=== PATIENT | male | born 1950 | race Caucasian/White ===

== ENCOUNTER → 2020-09-30 08:57 | Outpatient (BNVA) | payer MEDICARE, OTHER, SELFPAY | PROVIDERS: PCP Internal Medicine; Visit Provider Urology | DX: C61 Malignant neoplasm of prostate (principal) | CPT/HCPCS: 96402; 99212; J9217 ==

== ENCOUNTER → 2021-03-22 09:46 | Outpatient (BNVA) | payer MEDICARE, OTHER, SELFPAY | PROVIDERS: PCP Internal Medicine; Visit Provider Urology | DX: C61 Malignant neoplasm of prostate (principal) | CPT/HCPCS: 96402; 99212; J9217 ==

== ENCOUNTER → 2021-10-13 09:17 | Outpatient (BNVA) | payer MEDICARE, OTHER, SELFPAY | PROVIDERS: PCP Internal Medicine; Visit Provider Urology | DX: C61 Malignant neoplasm of prostate (principal) | CPT/HCPCS: Q3014 ==

== ENCOUNTER → 2022-04-19 13:51 | Outpatient (BNVA) | payer MEDICARE, OTHER, SELFPAY | PROVIDERS: PCP Internal Medicine; Visit Provider Urology | DX: R39.15 Urgency of urination (principal); C61 Malignant neoplasm of prostate | CPT/HCPCS: Q3014 ==

== ENCOUNTER → 2022-10-24 09:15 | Outpatient (BNVA) | payer MEDICARE, OTHER, SELFPAY | PROVIDERS: PCP Internal Medicine; Visit Provider Urology | DX: C61 Malignant neoplasm of prostate (principal); R39.15 Urgency of urination | CPT/HCPCS: Q3014 ==

== ENCOUNTER 2023-04-19 09:55 | Outpatient (AMB) | payer MEDICARE, OTHER, SELFPAY ==
--- NOTE | 2023-04-19 09:56 | MHC.OFFVIS ---
Intake Intake Visit Reasons: 6M PSA(set) Intake Note: Patient is present for Telephone PSA Follow Up Urology Med: Oxybutynin Antibiotic Allergy: None Blood Thinner: Aspirin Allergies poison lauren extract [POISON LAUREN] Allergy (Unknown, Verified 04/19/23 09:57) RASH SWELLING Medication List - Last Reconciled 04/19/23 by Jayson Parry MD amoxicillin-pot clavulanate 875-125 mg 1 tab PO BID aspirin (Adult Aspirin Regimen) 81 mg PO DAILY atorvastatin mg PO fluticasone propionate 50 mcg/actuation intranasal hydrochlorothiazide 25 mg PO DAILY lisinopril 20 mg PO DAILY lovastatin 20 mg PO DAILY oxybutynin chloride ER 5 mg PO DAILY 90 days HPI HPI Comments History of Present Illness Details Abran is a very pleasant male. He is a patient of Dr. North. He is seen for the following urologic condition. - prostate cancer recurrence - urinary urgency Telemedicine evaluation 15 minute consultation Doximity gabino Video attempted PSA stability maintained Continues to use oxybutynin for stability of bladder. Planned upcoming [facility] trip Prostate cancer. Initial therapy prostatectomy. 1998. External beam radiation 2018 Initial diagnosis 1998 - Dr. Ramon Initial therapy radical prostatectomy PSA was stable and approximately 2018 started to rise. - Maximum elevation 1.8 Secondary therapy external beam radiation with 2 years of GnRH 2018 Last GnRH 03/14 Associated symptoms during therapy urinary urgency frequency on oxybutynin PSA 03/14 < 0.1, 09/13 <0.1 T 224, 04/14 <0.1, 10/16 <0.1, 04/15 <0.1 Therapeutic plan surveillance [facility] Medical History Prostate cancer Review of Systems Const All systems reviewed & are unremarkable except as noted in HPI and below Reports no additional complaints Resp Reports no additional complaints GI Reports no additional complaints Reports as per HPI Musc Reports no additional complaints Physical Exam Telemedicine evaluation Appropriate responses Regular breathing rate and rhythm HEENT Head: Yes normal to inspection Ears: hearing grossly normal bilaterally Eyes General: appearance normal, both eyes and all related structures Neck Neck: Yes normal visual inspection Chest Chest palpation & inspection: normal inspection of the chest Resp Effort & Inspection: normal respiratory effort and able to speak in complete sentences Assessment & Plan Assessment & Plan (1) Prostate cancer: Comment: Initial diagnosis 1998 with prostatectomy, radiation and hormones 2019 Code(s): C61 - Malignant neoplasm of prostate (2) Urinary urgency: Code(s): R39.15 - Urgency of urination Plan Six month follow-up PSA Orders: Orders Prostate Specific Antigen 6 Months C61 - Malignant neoplasm of prostate Medications: Refilled oxybutynin chloride ER 5 mg PO DAILY 90 tabs 1RF 90 days Patient Instructions: Imaging studies, laboratory and physical exam results were discussed and reviewed in detail. No major barriers to patient understanding were identified. An opportunity to ask questions regarding the treatment plan was provided. All questions were answered. The patient expressed understanding and agreement with the above treatment plan. The patient is aware they should contact our office by phone for worsening of their current condition or the appearance of new urologic symptoms. Compliance is encouraged with any medications and followup testing that is ordered. It is a privilege to participate in the urologic care of your patient. If you have any questions or concerns regarding treatment for the above conditions, or other urologic issues, please do not hesitate to contact me. The office telephone contact is [phone]. This note is constructed using voice recognition software. While every effort has been made to ensure accuracy senior accountant analyst errors may have been included. Yours sincerely, Dr Jayson Parry MD, [facility] - Urology Providers of Expert, Compassionate Care for the Genitourinary System Telehealth Telehealth Location of provider rendering services: practice address Location of patient: address on file Patient Identification confirmed using: Name, : Yes Telehealth method: video Patient verbally consented to treatment: Yes Patient verbally consented to billing insurance company: Yes Patient informed of any privacy concerns related to visit: Yes Coding Level of Care Code Tele Est Pt Level 3 (10581) Diagnoses Prostate cancer C61 Urinary urgency R39.15
== END 2023-04-19 10:35 | disposition home or self-care (01) ==
LOC: HO.HUSH 09:55
PROVIDERS: PCP Internal Medicine; Visit Provider Urology
DX: C61 Malignant neoplasm of prostate (principal); R39.15 Urgency of urination
CPT/HCPCS: 99442

== ENCOUNTER → 2023-04-19 09:55 | Outpatient (BNVA) | payer MEDICARE, OTHER, SELFPAY | PROVIDERS: PCP Internal Medicine; Visit Provider Urology ==

== ENCOUNTER 2023-10-04 10:57 | Outpatient (AMB) | payer MEDICARE, OTHER, SELFPAY ==
--- NOTE | 2023-10-04 10:58 | A.OFFVIS_ITS ---
Intake Intake Visit Reasons: 6m/PSA(set less than 0.1) Intake Note: Patient is Present for Telephone Follow Up PSA Urology Med: Oxybutynin Antibiotic Allergy: None Blood Thinner: Aspirin Current PSA: Less than 0.01 Allergies poison lauren extract [POISON LAUREN] Allergy (Unknown, Verified 10/04/23 11:03) RASH SWELLING Medication List - Last Reconciled 10/04/23 by Jayson Parry MD amoxicillin-pot clavulanate 875-125 mg 1 tab PO BID aspirin (Adult Aspirin Regimen) 81 mg PO DAILY atorvastatin mg PO fesoterodine ER 4 mg PO DAILY 30 days fluticasone propionate 50 mcg/actuation intranasal hydrochlorothiazide 25 mg PO DAILY lisinopril 20 mg PO DAILY lovastatin 20 mg PO DAILY HPI HPI Comments History of Present Illness Details Abran is a very pleasant male. He is a patient of Dr. North. He is seen for the following urologic condition. - prostate cancer recurrence - urinary urgency Telemedicine evaluation 15 minute consultation Doximity gabino Video attempted PSA stability maintained Continues to use oxybutynin for stability of bladder. Will switch to Toviaz since has better tolerance. Prostate cancer. Initial therapy prostatectomy. 1998. External beam radiation 2018 Initial diagnosis 1998 - Dr. Ramon Initial therapy radical prostatectomy PSA was stable and approximately 2018 started to rise. - Maximum elevation 1.8 Secondary therapy external beam radiation with 2 years of GnRH 2018 Last GnRH 03/14 Associated symptoms during therapy urinary-urgency frequency on oxybutynin PSA 03/14 < 0.1, 09/13 <0.1 T 224, 04/14 <0.1, 10/16 <0.1, 04/15 <0.1, 09/15 <0.1 Therapeutic plan surveillance [facility] Medical History Prostate cancer Review of Systems Const All systems reviewed & are unremarkable except as noted in HPI and below Reports no additional complaints Resp Reports no additional complaints GI Reports no additional complaints Reports as per HPI Musc Reports no additional complaints Physical Exam Telemedicine evaluation Appropriate responses Regular breathing rate and rhythm HEENT Head: Yes normal to inspection Ears: hearing grossly normal bilaterally Eyes General: appearance normal, both eyes and all related structures Neck Neck: Yes normal visual inspection Chest Chest palpation & inspection: normal inspection of the chest Resp Effort & Inspection: normal respiratory effort and able to speak in complete sentences Assessment & Plan Assessment & Plan (1) Prostate cancer: Comment: Initial diagnosis 1998 with prostatectomy, radiation and hormones 2018 Code(s): C61 - Malignant neoplasm of prostate (2) Urinary urgency: Code(s): R39.15 - Urgency of urination Plan 2m f/u tele Medications: Changed From oxybutynin chloride ER 5 mg PO DAILY 90 days 90 tabs 1RF To fesoterodine ER 4 mg PO DAILY 30 days 30 tabs 1RF Patient Instructions: Imaging studies, laboratory and physical exam results were discussed and reviewed in detail. No major barriers to patient understanding were identified. An opportunity to ask questions regarding the treatment plan was provided. All questions were answered. The patient expressed understanding and agreement with the above treatment plan. The patient is aware they should contact our office by phone for worsening of their current condition or the appearance of new urologic symptoms. Compliance is encouraged with any medications and followup testing that is ordered. It is a privilege to participate in the urologic care of your patient. If you have any questions or concerns regarding treatment for the above conditions, or other urologic issues, please do not hesitate to contact me. The office telephone contact is [phone]. This note is constructed using voice recognition software. While every effort has been made to ensure accuracy asset protection representative errors may have been included. Yours sincerely, Dr Jayson Parry MD, [facility] - Urology Providers of Expert, Compassionate Care for the Genitourinary System Telehealth Telehealth Location of provider rendering services: practice address Location of patient: address on file Patient Identification confirmed using: Name, : Yes Telehealth method: video Patient verbally consented to treatment: Yes Patient verbally consented to billing insurance company: Yes Patient informed of any privacy concerns related to visit: Yes Coding Level of Care Code Tele Est Pt Level 4 (57835) Diagnoses Prostate cancer C61 Urinary urgency R39.15
== END 2023-10-04 11:13 | disposition home or self-care (01) ==
LOC: HO.HUSH 10:57
PROVIDERS: PCP Internal Medicine; Visit Provider Urology
DX: C61 Malignant neoplasm of prostate (principal); R39.15 Urgency of urination
CPT/HCPCS: 99213

== ENCOUNTER → 2023-10-04 10:57 | Outpatient (BNVA) | payer MEDICARE, OTHER, SELFPAY | PROVIDERS: PCP Internal Medicine; Visit Provider Urology ==

== ENCOUNTER 2024-01-03 08:12 | Outpatient (AMB) | payer MEDICARE, OTHER, SELFPAY ==
--- NOTE | 2024-01-03 08:14 | A.OFFVIS_ITS ---
Intake Intake Visit Reasons: 2M Med Review(Fesoterodine) confirmed Intake Note: Patient presents today for a telehealth follow up on: Fesoterodine review Meds- Oxybutynin Allergies to Antibiotic- No Known Allergies Blood Thinner- Aspirin Sulphate Tester Required: No Allergies poison lauren extract [POISON LAUREN] Allergy (Unknown, Verified 01/03/24 08:16) RASH SWELLING HPI HPI Comments History of Present Illness Details Abran is a very pleasant male. He is a patient of Dr. North. He is seen for the following urologic condition. - prostate cancer recurrence - urinary urgency Telemedicine evaluation 15 minute consultation fitkit gabino Video Follow-up for trial of Toviaz. Had responded previously to oxybutynin. PSA stability maintained Prefers oxybutynin for stability of bladder. Radiation cystitis - urinary urgency frequency Prior response to oxybutynin Failed Toviaz - side effects with bowels - increased frequency Has been back on oxybuytinin - less bowel effects Prostate cancer. Initial therapy prostatectomy. 1998. External beam radiation 2018 Initial diagnosis 1998 - Dr. Ramon Initial therapy radical prostatectomy PSA was stable and approximately 2018 started to rise. - Maximum elevation 1.8 Secondary therapy external beam radiation with 2 years of GnRH 2017 Last GnRH 03/14 Associated symptoms during therapy urinary-urgency frequency on oxybutynin PSA 03/14 < 0.1, 09/13 <0.1 T 224, 04/14 <0.1, 10/16 <0.1, 04/15 <0.1, 09/15 <0.1 Therapeutic plan surveillance [facility] Medical History Prostate cancer Review of Systems Const All systems reviewed & are unremarkable except as noted in HPI and below Reports no additional complaints Resp Reports no additional complaints GI Reports no additional complaints Reports as per HPI Musc Reports no additional complaints Physical Exam Telemedicine evaluation Appropriate responses Regular breathing rate and rhythm HEENT Head: Yes normal to inspection Ears: hearing grossly normal bilaterally Eyes General: appearance normal, both eyes and all related structures Neck Neck: Yes normal visual inspection Chest Chest palpation & inspection: normal inspection of the chest Resp Effort & Inspection: normal respiratory effort and able to speak in complete sentences Assessment & Plan Assessment & Plan (1) Prostate cancer: Comment: Initial diagnosis 1998 with prostatectomy, radiation and hormones 2018 Code(s): C61 - Malignant neoplasm of prostate (2) Urinary urgency: Code(s): R39.15 - Urgency of urination Plan Six-month follow-up PSA Orders: Orders Prostate Specific Antigen 6 Months C61 - Malignant neoplasm of prostate Patient Instructions: Imaging studies, laboratory and physical exam results were discussed and reviewed in detail. No major barriers to patient understanding were identified. An opportunity to ask questions regarding the treatment plan was provided. All questions were answered. The patient expressed understanding and agreement with the above treatment plan. The patient is aware they should contact our office by phone for worsening of their current condition or the appearance of new urologic symptoms. Compliance is encouraged with any medications and followup testing that is ordered. It is a privilege to participate in the urologic care of your patient. If you have any questions or concerns regarding treatment for the above conditions, or other urologic issues, please do not hesitate to contact me. The office telephone contact is [phone]. This note is constructed using voice recognition software. While every effort has been made to ensure accuracy crutch maker errors may have been included. Yours sincerely, Dr Jayson Parry MD, [facility] - Urology Providers of Expert, Compassionate Care for the Genitourinary System Telehealth Telehealth Location of provider rendering services: practice address Location of patient: address on file Patient Identification confirmed using: Name, : Yes Telehealth method: video Patient verbally consented to treatment: Yes Patient verbally consented to billing insurance company: Yes Patient informed of any privacy concerns related to visit: Yes Minutes spent on Phone/Video with Pt.: 15 Coding Level of Care Code Tele Est Pt Level 3 (81988) Diagnoses Prostate cancer C61 Urinary urgency R39.15
== END 2024-01-03 08:47 | disposition home or self-care (01) ==
LOC: HO.HUSH 08:12
PROVIDERS: PCP Internal Medicine; Visit Provider Urology
DX: C61 Malignant neoplasm of prostate (principal); R39.15 Urgency of urination
CPT/HCPCS: 99213

== ENCOUNTER → 2024-01-03 08:12 | Outpatient (BNVA) | payer MEDICARE, OTHER, SELFPAY | PROVIDERS: PCP Internal Medicine; Visit Provider Urology ==

== ENCOUNTER 2024-07-04 08:36 | Outpatient (AMB) | payer MEDICARE, OTHER, SELFPAY ==
--- NOTE | 2024-07-04 08:44 | A.OFFVIS_ITS ---
Intake Visit Reasons: 6M PSA(SET)[place] Intake Note: Patient is Present for Follow Up PSA Urology Medication: Oxybutynin Antibiotic Allergies:None Blood Thinners: Aspirin Recent PSA: 06/27/2024 PSA: <0.01 Polisher Hand Required: No Accompanied by: Self / Same As Patient Allergies poison lauren extract [POISON LAUREN] Allergy (Unknown, Verified 07/04/24 08:49) RASH SWELLING HPI Comments Details: Abran is a very pleasant male. He is a patient of Dr. North. He is seen for the following urologic condition. - prostate cancer recurrence - urinary urgency Has remained on oxybutynin for urgency frequency PSA stability maintained Prefers oxybutynin for stability of bladder. Six-month follow-up tele Radiation cystitis - urinary urgency frequency Prior response to oxybutynin Failed Toviaz - side effects with bowels - increased frequency Has been back on oxybuytinin - less bowel effects Prostate cancer. Initial therapy prostatectomy. 1998. External beam radiation 2017 Initial diagnosis 1998 - Dr. Ramon Initial therapy radical prostatectomy PSA was stable and approximately 2017 started to rise. - Maximum elevation 1.8 Secondary therapy external beam radiation with 2 years of GnRH 2018 Last GnRH 03/14 Associated symptoms during therapy urinary-urgency frequency on oxybutynin PSA 03/14 < 0.1, 09/13 <0.1 T 224, 04/14 <0.1, 10/16 <0.1, 04/15 <0.1, 09/15 <0.1, 06/27 <0.1 Therapeutic plan surveillance [facility] Medical History Prostate cancer Review of Systems Const Denies chills and Denies fever(s) Card Reports no additional complaints and Denies syncope Resp Denies cough GI Denies abdominal pain and Denies heartburn Reports as per HPI and Denies change in libido Neuro Denies syncope Psych Denies change in libido Endo Denies change in libido Physical Exam Const General: cooperative, healthy appearing, comfortable and no acute distress Orientation/consciousness: patient oriented x3 HEENT Face and sinus: Yes normal facial exam Mouth: moist mucous membranes Neck Neck: Yes normal visual inspection, Yes full ROM and Yes trachea midline Chest Chest palpation & inspection: normal inspection of the chest Resp Effort & Inspection: normal respiratory effort, able to speak in complete sentences and no respiratory distress GI Inspection: Yes normal to inspection Back/Spine/Pelvis Cervical Spine: normal cervical lordosis Thoracic/Lumbar Spine: thoracic and lumbar spine normal to inspection Skin General skin exam: no rashes or lesions noted Neuro General: patient oriented x3, gait normal, tone normal and moves all extremities Extrem General: Yes normal to inspection and Yes capillary refill normal Assessment & Plan Assessment & Plan (1) Urinary urgency: Code(s): R39.15 - Urgency of urination Category: Medical (2) Prostate cancer: Comment: Initial diagnosis 1998 with prostatectomy, radiation and hormones 2018 Code(s): C61 - Malignant neoplasm of prostate Category: Medical Plan Six-month follow-up Orders: Orders Prostate Specific Antigen 6 Months C61 - Malignant neoplasm of prostate Patient Instructions: Imaging studies, laboratory and physical exam results were discussed and reviewed in detail. No major barriers to patient understanding were identified. An opportunity to ask questions regarding the treatment plan was provided. All questions were answered. The patient expressed understanding and agreement with the above treatment plan. The patient is aware they should contact our office by phone for worsening of their current condition or the appearance of new urologic symptoms. Compliance is encouraged with any medications and followup testing that is ordered. It is a privilege to participate in the urologic care of your patient. If you have any questions or concerns regarding treatment for the above conditions, or other urologic issues, please do not hesitate to contact me. The office telephone contact is [phone]. This note is constructed using voice recognition software. While every effort has been made to ensure accuracy certified prosthetist errors may have been included. Yours sincerely, Dr Jayson Parry MD, [facility] - Urology Providers of Expert, Compassionate Care for the Genitourinary System Coding Level of Care Code Est Pt Level 3 (50771) Diagnoses Urinary urgency R39.15 Prostate cancer C61
== END 2024-07-04 09:01 | disposition home or self-care (01) ==
PROVIDERS: PCP Internal Medicine; Visit Provider Urology
DX: R39.15 Urgency of urination (principal); C61 Malignant neoplasm of prostate
CPT/HCPCS: 99213

== ENCOUNTER → 2024-07-04 08:36 | Outpatient (BNVA) | payer MEDICARE, OTHER, SELFPAY | PROVIDERS: PCP Internal Medicine; Visit Provider Urology | DX: R39.15 Urgency of urination (principal); C61 Malignant neoplasm of prostate | CPT/HCPCS: 99212 ==

== ENCOUNTER 2025-01-06 08:26 | Outpatient (AMB) | payer MEDICARE, OTHER, SELFPAY ==
--- NOTE | 2025-01-06 08:26 | A.OFFVIS_ITS ---
Intake Visit Reasons: Six-month follow-up PSA tele Intake Note: Patient is present for 6M/PSA Urology Medication:OXYBUTYNIN Antibiotic Allergy:NONE Blood Thinner:ASPIRIN Straightedge Worker Required: No Allergies poison lauren extract [POISON LAUREN] Allergy (Unknown, Verified 01/06/25 08:27) RASH SWELLING HPI Comments Details: Abran is a very pleasant male. He is a patient of Dr. North. He is seen for the following urologic condition. - prostate cancer recurrence - urinary urgency Lab work at [facility] Telemedicine Evaluation 15 min Consultation [employer] Lisa Video Has remained on oxybutynin for urgency frequency Prefers oxybutynin for stability of bladder - discussed trial of other anticholinergics previously failed Toviaz Six-month follow-up office Radiation cystitis - urinary urgency frequency Prior response to oxybutynin Failed Toviaz - side effects with bowels - increased frequency Has been back on oxybuytinin - less bowel effects Prostate cancer. Initial therapy prostatectomy. 1998. External beam radiation 2017 Initial diagnosis 1998 - Dr. Ramon Initial therapy radical prostatectomy PSA was stable and approximately 2018 started to rise. - Maximum elevation 1.8 Secondary therapy external beam radiation with 2 years of GnRH 2018 Last GnRH 03/14 Associated symptoms during therapy urinary-urgency frequency on oxybutynin PSA 03/14 < 0.1, 09/13 <0.1 T 224, 04/14 <0.1, 10/16 <0.1, 04/15 <0.1, 09/15 <0.1, 07/17 <0.1 Therapeutic plan surveillance [facility] Medical History Prostate cancer Review of Systems Const All systems reviewed & are unremarkable except as noted in HPI and below Reports no additional complaints Resp Reports no additional complaints GI Reports no additional complaints Reports as per HPI Musc Reports no additional complaints Physical Exam Telemedicine evaluation Appropriate responses Regular breathing rate and rhythm HEENT Head: Yes normal to inspection Ears: hearing grossly normal bilaterally Eyes General: appearance normal, both eyes and all related structures Neck Neck: Yes normal visual inspection Chest Chest palpation & inspection: normal inspection of the chest Resp Effort & Inspection: normal respiratory effort and able to speak in complete sentences Telehealth Telehealth Location of provider rendering services: practice address Location of patient: address on file Patient Identification confirmed using: Name, : Yes Telehealth method: voice only Patient verbally consented to treatment: Yes Patient verbally consented to billing insurance company: Yes Patient informed of any privacy concerns related to visit: Yes Assessment & Plan Assessment & Plan (1) Prostate cancer: Comment: Initial diagnosis 1998 with prostatectomy, radiation and hormones 2018 Code(s): C61 - Malignant neoplasm of prostate Category: Medical (2) Urinary urgency: Code(s): R39.15 - Urgency of urination Category: Medical Plan Six-month follow-up PSA [place] office Orders: Orders Prostate Specific Antigen 6 Months C61 - Malignant neoplasm of prostate Medications: Refilled oxybutynin chloride ER 5 mg PO DAILY 90 days 90 tabs 1RF R39.15 - Urgency of urination Patient Instructions: This note is constructed using voice recognition software. While every effort has been made to ensure accuracy projection printer errors may have been included. Imaging studies, laboratory and physical exam results were discussed and reviewed in detail. No major barriers to patient understanding were identified. An opportunity to ask questions regarding the treatment plan was provided. All questions were answered. The patient expressed understanding and agreement with the above treatment plan. The patient is aware they should contact our office by phone for worsening of their current condition or the appearance of new urologic symptoms. Compliance is encouraged with any medications and followup testing that is ordered. It is a privilege to participate in the urologic care of your patient. If you have any questions or concerns regarding treatment for the above conditions, or other urologic issues, please do not hesitate to contact me. The office telephone contact is [phone]. Sincerely, Dr Jayson Parry MD, [facility] - Urology Compassionate Specialist Care for the Genitourinary System Coding Level of Care Code Tele Est Pt Level 3 (68353) Complex EM visit Add On G2211 Diagnoses Prostate cancer C61 Urinary urgency R39.15
== END 2025-01-06 09:00 | disposition home or self-care (01) ==
LOC: HO.HUSH 08:26
PROVIDERS: PCP Internal Medicine; Visit Provider Urology
DX: C61 Malignant neoplasm of prostate (principal); R39.15 Urgency of urination
CPT/HCPCS: 99213; G2211

== ENCOUNTER → 2025-01-06 08:26 | Outpatient (BNVA) | payer MEDICARE, OTHER, SELFPAY | PROVIDERS: PCP Internal Medicine; Visit Provider Urology ==

== ENCOUNTER 2025-07-09 08:34 | Outpatient (AMB) | payer MEDICARE, OTHER, SELFPAY ==
--- NOTE | 2025-07-09 08:35 | A.OFFVIS_ITS ---
Intake Visit Reasons: 6m/PSA Intake Note: patient presents today for: 6mo follow up urology medications: oxybutynin blood thinners: aspirin labs done 06/26/25: PSA <0.01 Senior Application Security Consultant Required: No Accompanied by: Self / Same As Patient Allergies poison lauren extract (POISON LAUREN) Allergy (Unknown, Verified 07/09/25 08:37) RASH SWELLING HPI Comments Details: Abran is a very pleasant male. He is a patient of Dr. North. He is seen for the following urologic condition. - prostate cancer recurrence - urinary urgency Lab work at [facility] PSA remains well controlled Has remained on oxybutynin for urgency frequency - switch to Toviaz Prefers oxybutynin for stability of bladder - discussed trial of other anticholinergics previously failed Toviaz 12 month follow-up Radiation cystitis - urinary urgency frequency Prior response to oxybutynin Failed Toviaz - side effects with bowels - increased frequency Has been back on oxybuytinin - less bowel effects Prostate cancer. Initial therapy prostatectomy. 1998. External beam radiation 2017 Initial diagnosis 1998 - Dr. Ramon Initial therapy radical prostatectomy PSA was stable and approximately 2018 started to rise. - Maximum elevation 1.8 Secondary therapy external beam radiation with 2 years of GnRH 2018 Last GnRH 03/14 Associated symptoms during therapy urinary-urgency frequency on oxybutynin PSA 03/14 < 0.1, 09/13 <0.1 T 224, 04/14 <0.1, 10/16 <0.1, 04/15 <0.1, 09/15 <0.1, 07/17 <0.1, 07/18 <0.1 Therapeutic plan surveillance [facility] Medical History Prostate cancer Review of Systems Const Denies chills and Denies fever(s) Card Reports no additional complaints and Denies syncope Resp Denies cough GI Denies abdominal pain and Denies heartburn Reports as per HPI and Denies change in libido Neuro Denies syncope Psych Denies change in libido Endo Denies change in libido Physical Exam Const General: cooperative, healthy appearing, comfortable and no acute distress Orientation/consciousness: patient oriented x3 HEENT Face and sinus: Yes normal facial exam Mouth: moist mucous membranes Neck Neck: Yes normal visual inspection, Yes full ROM and Yes trachea midline Chest Chest palpation & inspection: normal inspection of the chest Resp Effort & Inspection: normal respiratory effort, able to speak in complete sentences and no respiratory distress GI Inspection: Yes normal to inspection Back/Spine/Pelvis Cervical Spine: normal cervical lordosis Thoracic/Lumbar Spine: thoracic and lumbar spine normal to inspection Skin General skin exam: no rashes or lesions noted Neuro General: patient oriented x3, gait normal, tone normal and moves all extremities Extrem General: Yes normal to inspection and Yes capillary refill normal Assessment & Plan Assessment & Plan (1) Prostate cancer: Comment: Initial diagnosis 1998 with prostatectomy, radiation and hormones 2018 Code(s): C61 - Malignant neoplasm of prostate Category: Medical (2) Urinary urgency: Code(s): R39.15 - Urgency of urination Category: Medical Plan Twelve month follow-up PSA Orders: Orders Prostate Specific Antigen 12 Months C61 - Malignant neoplasm of prostate Medications: New fesoterodine ER 4 mg PO DAILY 30 tabs 1RF 30 days R39.15 - Urgency of urination Discontinued oxybutynin chloride ER Discontinued Reason: Patient Completed Course 5 mg PO DAILY 90 days 90 tabs 1RF R39.15 - Urgency of urination Patient Instructions: This note is constructed using voice recognition software. While every effort has been made to ensure accuracy wide area network systems administrator errors may have been included. Imaging studies, laboratory and physical exam results were discussed and reviewed in detail. No major barriers to patient understanding were identified. An opportunity to ask questions regarding the treatment plan was provided. All questions were answered. The patient expressed understanding and agreement with the above treatment plan. The patient is aware they should contact our office by phone for worsening of their current condition or the appearance of new urologic symptoms. Compliance is encouraged with any medications and followup testing that is ordered. It is a privilege to participate in the urologic care of your patient. If you have any questions or concerns regarding treatment for the above conditions, or other urologic issues, please do not hesitate to contact me. The office telephone contact is [phone]. Sincerely, Dr Jayson Parry MD, [facility] - Urology Compassionate Specialist Care for the Genitourinary System Coding Level of Care Code Est Pt Level 3 (99218) Complex EM visit Add On G2211 Diagnoses Prostate cancer C61 Urinary urgency R39.15
--- OUTSIDE RECORDS SUMMARY | 2025-07-09 09:03 | XMS_ITS | Encounter Summary ---
Author Organization [facility] Address [address] [place] [address] Phone Care Team Providers Care Talent Agent Name Role Phone María North MD Unavailable [phone] María North MD Primary Care Provider [phone] Encounter Details Date Type Department Care Team (Late st Contact Info) Description 01/16/2024 Transcribe Orders [facility] Laboratory [address] [place], [place] [id number] María North MD [address] [place], [place] [id number] [email or web address] Hypertension, unspecified type (Primary Dx); Hyperlipidemia, unspecified hyperlipidemia type; Elevated MCV Social History Tobacco Use Types Packs/Day Years Used Date Smoking Tobacco: Former Cigarettes Q uit: 12/29/1973 Smokeless Tobacco: Never Alcohol Use Standard Drinks/Week Comments Yes 28 (1 standard drink = 0.6 oz pu re alcohol) Education Answer Date Recorded Are you interested in more education? Not on adia e 01/19/2023 Are you concerned about learning? Not on file 01/19/2023 No 01/19/2023 No 01/19/2023 Digital Access Answer Date Recorded No 02/13/2023 No 02/13/2023 Reliable internet access at home? Not on file 02/13/2023 Device with a working camera? Not on file Intimate Partner Violence Answer Date R ecorded Are you denied basic needs s uch as food, clothing, or medical care? No 02/22/2023 In the past 12 months have y ou been in a relationship with a person who hurts, threatens, or tries to control you? No 02/22/2023 Are you denied basic needs s uch as food, clothing, or medical care? No 02/22/2023 In the past 12 months have y ou been in a relationship with a person who hurts, threatens, or tries to control you? No 02/22/2023 Sex and Gender Information Value Date Recorded Sex Assigned at Not on file Legal Sex Male 10:04 PM EDT Gender Identity Not on file Sexual Orientation Not on file documented as of this encounter Plan of Treatment Not on file documented as of this encounter Results * (ABNORMAL) CBC (01/16/2024 8:01 AM EDT) WBC 6.94 4.00 - 11.00 K/uL [facility] RBC 4.12 3.90 - 5.69 M/uL [facility] HGB 13.7 12.4 - 17.3 g/dL [facility] HCT 41.1 37.0 - 51.0 % [facility] PLT 344 140 - 430 K/uL [facility] MCV 99.8(H) 78.0 - 97.0 fL [facility] MCH 33.3(H) 25.0 - 33.0 pg [facility] MCHC 33.3 32.0 - 36.0 g/dL [facility] RDW 12.4 11.0 - 15.0 % [facility] MPV 9.7 8.4 - 12.8 fl [facility] Blood 01/16/2024 8:01 AM EDT 01/16/2024 8:09 AM EDT us María North MD LAB BLOOD ORDERABLES Final Result [facility] [address] [place] [address] * Lipid panel (01/16/2024 8:01 AM EDT) HDL 52 mg/dL [facility] Comment: Interpretation <40 mg/dL: Low HDL cholesterol (major risk factor for CHD) Greater than or equal to 60 mg/dL: High HDL cholesterol ( negative risk factor for CHD) HDL - cholesterol is affected by a number of factors, e.g. smoking, excerise, hormones, sex and age. CHOLESTEROL 179 0 - 240 mg/dL [facility] TRIGLYCERIDES 118 30 - 160 mg/dL [facility] LDL 103 50 - 129 mg/dL [facility] Comment: LDL levels in terms of risk for coronary heart disease: <100 mg/dL: Optimal 100-129 mg/dL: Near or above optimal 130-159 mg/dL: Borderline high 160-189 mg/dL: High >190 mg/dL: Very High CARDIAC RISK RATIO 3.4 3.4 - 5.0 C [facility] Blood 01/16/2024 8:01 AM EDT 01/16/2024 8:09 AM EDT us María North MD LAB BLOOD ORDERABLES Final Result Performing Organization Address City/State/[facility] Co de Phone Number [address] [address] * (ABNORMAL) Comprehensive metabolic panel (01/16/2024 8:01 AM EDT) SODIUM 140 133 - 146 mmol/L [facility] POTASSIUM 4.2 3.3 - 5.1 mmol/L [facility] CHLORIDE 104 96 - 108 mmol/L [facility] CO2 22 21 - 35 mmol/L [facility] BUN 24(H) 6 - 19 mg/dL [facility] CREATININE 1.40 0.5 - 1.5 mg/dL [facility] GLUCOSE 93 70 - 99 mg/dL [facility] ALBUMIN 4.1 3.9 - 4.8 g/dL [facility] TOTAL PROTEIN 6.7 6.5 - 8.0 g/dL [facility] CALCIUM 9.1 8.4 - 10.3 mg/dL [facility] ALKALINE PHOSPHATASE 58 39 - 117 U/L [facility] TOTAL BILIRUBIN 0.3 0.0 - 1.2 mg/dL [facility] AST 25 0 - 37 U/L [facility] ALT 24 0 - 40 U/L [facility] GLOBULIN 2.6 1 - 4.8 g/dL [facility] EGFR 53(L) >59 mL/min/1.7 3m2 [facility] Comment:Estimated glomerular filtration rate calculated using the CKD-EPI refit equation. ANION GAP 18 10 - 20 mmol/L [facility] Blood 01/16/2024 8:01 AM EDT 01/16/2024 8:09 AM EDT María North MD LAB BLOOD ORDERABLES Final Result [facility] [address] [place] [address] documented in this encounter Visit Diagnoses Diagnosis Hypertension, unspecified type- Primary Hyperlipidemia, unspecified hyperlipidemia type Elevated MCV Other abnormality of red blood cells documented in this encounter Additional Health Concerns Infection Onset Date Last Indicated Resolved Time CoV-Risk 10/07/2024 10/07/2024 10/18/2024 1:22 AM EST documented as of this encounter Care Teams Talent Agent Relationship Specialty Start Date End Date María North MD [address] [place] [address] PCP - General 09/27/17 María North MD [address] [place] [address] Historical LMR Provider 07/11/17 documented as of this encounter Additional Source Comments The information contained in this document represents components of the legal health record. It is not the complete legal health record.[facility]
--- OUTSIDE RECORDS SUMMARY | 2025-07-09 09:03 | XMS_ITS | Encounter Summary ---
Author Organization [facility] Address [address] [place] [address] Phone Care Team Providers Care Joy Loading Machine Operator Name Role Phone Laura Rose MD Unavailable [phone] María North MD Unavailable [phone] Mady Wong MD Unavailable [phone] María North MD Primary Care Provider [phone] Encounter Details Date Type Department Care Team (Late st Contact Info) Description 11/06/2019 Ancillary Orders [facility],Outside Imaging [address] [place] [address] System, Provider Not In, [place] [address] Social History Tobacco Use Types Packs/Day Years Used Date Smoking Tobacco: Never Assessed Sex and Gender Information Value Date Recorded Sex Assigned at Not on file Legal Sex Male 10:04 PM EDT Gender Identity Not on file Sexual Orientation Not on file documented as of this encounter Plan of Treatment Not on file documented as of this encounter Results * CT Abdomen/Pelvis Outside (No Interpretation) (01/24/2019 12:00 AM EDT) Narrative SYSTEMGENERATED, DOCUMENTATION - 11/06/2019 10:31 AM EST This study is for PACS storage only and not for interpretation. us Provider Not In System PhD IMG OUTSIDE IMAGING W /OUT INTERPRETATION Final Result documented in this encounter Visit Diagnoses Not on filedocumented in this encounter Additional Health Concerns Infection Onset Date Last Indicated Resolved Time CoV-Risk 10/07/2024 10/07/2024 10/18/2024 1:22 AM EST documented as of this encounter Care Teams Joy Loading Machine Operator Relationship Specialty Start Date End Date María North MD [address] [place] [address] PCP - General 09/27/17 Laura Rose MD [address] [facility], 2nd [place] [address] Historical LMR Provider 07/11/17 María North MD [address] [place] [address] Historical LMR Provider 07/11/17 Mady Wong MD [address] [place] [address] [facility], [place] [address] Historical LMR Provider 07/11/17 documented as of this encounter Additional Source Comments The information contained in this document represents components of the legal health record. It is not the complete legal health record.[facility]
--- OUTSIDE RECORDS SUMMARY | 2025-07-09 09:03 | XMS_ITS | Clinical Summary ---
Author Organization [facility] Address [address] [place] [address] Phone Care Team Providers Care Integration Consultant Name Role Phone María North MD Unavailable [phone] María North MD Primary Care Provider Allergies No known active allergies Medications lovastatin (MEVACOR) 20 MG tablet Take 1 tablet by mouth daily. with a meal Active oxybutynin (DITROPAN) 5 MG tablet Take 5 mg by mouth daily. as directed Orally Active fluticasone furoate (VERAMYST) 27.5 mcg/actuation nasal spray 2 sprays by Nasal route daily. 2 puffs in each nostril Nasally Once a day. Only [place] needed [place] Active aspirin 81 mg chewable tablet Take 1 tablet by mouth daily. Active multivitamin with minerals tablet as directed Orally Active atorvastatin (LIPITOR) 40 MG tablet Take 40 mg by mouth once. 2 Active lisinopril (PRINIVIL,ZESTR IL) 20 MG tablet Take 40 mg by mouth daily. Active b complex vitamins capsule Take 1 capsule by mouth daily. Active alpha lipoic acid 200 mg Cap Take 600 mg by mouth daily. Active coenzyme Q10 100 mg capsule Take 100 mg by mouth daily. Active ginkgo biloba 60 mg Cap Take by mouth. Activ e ibuprofen (ADVIL,MOTRIN) 200 MG tablet Take 200 mg by mouth every 6 (six) hours as needed for pain (specific location in comments). Active naproxen (NAPROSYN) 250 MG tablet Take 250 mg by mouth 2 (two) times a day with meals. Active acetaminophen (TYLENOL) 325 mg tablet Take 650 mg by mouth every 6 (six) hours as needed for mild pain. Active hydroCHLOROthia zide (HYDRODIURIL) 25 MG tablet Take 25 mg by mouth daily. Active traMADoL (ULTRAM) 50 mg tablet Take 1-2 tablets (50-100 mg total) by mouth every 8 (eight) hours as needed for pain (specific location in comments). 3 tablet Active Additional Information Patient not taking.Reported on 03/05/2023 Active Problems No known active problems Encounters Date Type Department Care Team Description 06/26/2025 7:46 AM EDT - 06/26/2025 11:59 PM EDT Hospital Encounter [facility] Laboratory [address] [address] Jayson Parry MD Discharge Disposition: Home or Self Care 06/26/2025 Transcribe Orders [facility] Laboratory [address] [place] [address] Jayson Parry MD Screening for prostate cancer (Primary Dx) 04/14/2025 10:27 AM EDT - 04/14/2025 11:59 PM EDT Hospital Encounter [facility] Laboratory [address] [place] [address] María North MD Discharge Disposition: Home or Self Care 04/14/2025 Transcribe Orders [facility] Laboratory [address] [place] [address] María North MD Hypertension, unspecified type (Primary Dx) from Last 3 Months Social History Tobacco Use Types Packs/Day Years Used Date Smoking Tobacco: Former Cigarettes Q uit: 12/29/1973 Smokeless Tobacco: Never Tobacco Cessation:Counseling Given: Not Answered Alcohol Use Standard Drinks/Week Comments Yes 28 [...] on file Sexual Orientation Not on file Last Filed Vital Signs Vital Sign Reading Time Taken Comments Blood Pressure 132/79 02/22/2023 12:00 PM EDT Pulse 59 02/22/2023 11:40 AM EDT Temperature 36.7 C (98.1 F) 02/22/2023 12:00 PM EDT Respiratory Rate 18 02/22/2023 12:00 PM EDT Oxygen Saturation 95% 02/22/2023 12:00 PM EDT Inhaled Oxygen Concentration - - Weight 89.4 kg (197 lb) 02/14/2023 11:17 AM EDT Height 167.6 cm (5' 6 ) 02/14/2023 11:17 AM EDT Body Mass Index 31.8 02/14/2023 11:17 AM EDT Plan of Treatment Health Maintenance Due Date Last Done Comments Adult Td,Tdap Booster 1949 DEPRESSION SCREENING 1961 SMOKING Hx and SMOKELESS TOBACCO SCREENING 1962 HEPATITIS C SCREENING 1967 PNEUMOCOCCAL VACCINES (50+ years) (1 of 1 - PCV) 1999 BLOOD PRESSURE 08/05/2023 02/02/2023 RSV VACCINE (1 - 1-dose 75+ series) 2024 INFLUENZA VACCINE (#1) 2025 , 07/19/2019, 06/25/2018, Additional history exists COVID-19 VACCINE (2 - season) 2025 12/24/2020 CREATININE LEVEL 04/14/2026 04/14/2025, 11/2024, 01/30/2025, Additional history exists POTASSIUM LEVEL 04/14/2026 04/14/2025, 06/0 11/2024, 01/30/2025, Additional history exists LIPID PANEL 01/30/2030 01/30/2025, 04/2 12/2023, 11/16/2022, Additional history exists ZOSTER VACCINES Completed 08/26/2018, 05/29/2018 HEPATITIS A VACCINES Aged Out No long er eligible based on patient's age to complete this topic HIB VACCINES Aged Out No longer eligi ble based on patient's age to complete this topic MENINGOCOCCAL VACCINES (ACWY) Aged Out No longer eligible based on patient's age to complete this topic MENINGOCOCCAL VACCINES (B) Aged Out N o longer eligible based on patient's age to complete this topic Medical Devices Implanted Type Area Railroad Maintenance Clerk Device Identifier Shelf Expiration Date Model / Serial / Lot Balloon Balloon Penis Procedures Procedure Name Priority Date/Time Associated Diagnosis Comments PSA (SCREENING) Routine 06/26/2025 7:46 AM EDT Screening for prostate cancer BASIC METABOLIC PANEL Routine 04/14/2025 10:28 AM EDT Hypertension, unspecified type LIPID PANEL Routine 01/30/2025 7:43 AM EDT Hypertension, unspecified type Hyperlipidemia, unspecified hyperlipidemia type from Last 3 Months or Most Recently Relevant to Health Maintenance Results * PSA (screening) (06/26/2025 7:46 AM EDT) PSA <0.01 0 - 4.00 ng/mL [facility] Comment: Test Methodology Jose [id number] Patient results determined by assays using different manufacturers or methods may not be comparable. Blood 06/26/2025 7:46 AM EDT 06/26/2025 7:52 AM EDT us Jayson Parry MD LAB BLOOD ORDERABLES Final Result [address] [address] * (ABNORMAL) Basic metabolic panel (04/14/2025 10:28 AM EDT) SODIUM 140 133 - 146 mmol/L [facility] CHLORIDE 104 96 - 108 mmol/L [facility] POTASSIUM 5.0 3.3 - 5.1 mmol/L [facility] CO2 24 21 - 35 mmol/L [facility] BUN 28(H) 6 - 19 mg/dL [facility] CREATININE 1.40 0.5 - 1.5 mg/dL [facility] GLUCOSE 79 70 - 99 mg/dL [facility] CALCIUM 9.3 8.4 - 10.3 mg/dL [facility] EGFR 52(L) >59 mL/min/1.7 3m2 [facility] Comment:Estimated glomerular filtration rate calculated using the CKD-EPI refit equation. ANION GAP 17 10 - 20 mmol/L [facility] Blood 04/14/2025 10:2 8 AM EDT 04/14/2025 10:30 AM EDT us María North MD LAB BLOOD ORDERABLES Final Result [address] [address] * Lipid panel (01/30/2025 7:43 AM EDT) HDL 53 mg/dL [facility] Comment: Interpretation <40 mg/dL: Low HDL cholesterol (major risk factor for CHD) Greater than or equal to 60 mg/dL: High HDL cholesterol ( negative risk factor for CHD) HDL - cholesterol is affected by a number of factors, e.g. smoking, excerise, hormones, sex and age. CHOLESTEROL 207 0 - 240 mg/dL [facility] TRIGLYCERIDES 136 30 - 160 mg/dL [facility] LDL 127 50 - 129 mg/dL [facility] Comment: LDL levels in terms of risk for coronary heart disease: <100 mg/dL: Optimal 100-129 mg/dL: Near or above optimal 130-159 mg/dL: Borderline high 160-189 mg/dL: High >190 mg/dL: Very High CARDIAC RISK RATIO 3.9 3.4 - 5.0 [facility] Blood 01/30/2025 7:43 AM EDT 01/30/2025 7:58 AM EDT María North MD LAB BLOOD ORDERABLES Final Result [facility] [address] [place] [address] from Last 3 Months or Most Recently Relevant to Health Maintenance Insurance MEDICARE PART A & B [facility] MEDICARE SUPPLEMENT MEDICARE PART A & B Member Subscriber Plan / Payer (Ef fective 2014-Present) Name:Abran Mendez Member ID:[id number] Relation to Subscriber:Self Name:Abran Mendez Subscriber ID:[id number] Payer ID:[id number] Group ID:Not on file Type:Medicare Address: [employer] [address] [place] [id number] [facility] MEDICARE SUPPLEMENT MEDICARE PART A & B [facility] MEDICARE SUPPLEMENT MEDICARE PART A & [facility] SUPPLEMENT MEDICARE PART A & B [employer] EXTENSION MEDICARE SUPPLEMENT MEDICARE PART A & B [employer] MEDICARE SUPPLEMENT MEDICARE PART A & B [employer] MEDICARE SUPPLEMENT MEDICARE PART A & B [employer] MEDICARE SUPPLEMENT MEDICARE PART A & B [employer] EXTENSION MEDICARE SUPPLEMENT Advance Directives For more information, please contact: [phone] (9AM - 5PM Janice/[facility], Sunday-Sunday) * Full Code (Latest Code Status on File) Date Activated Date Inactivated Comments 02/22/2023 9:27 AM Question Answer Comments Code Status Confirmed With: Patient Care Teams Integration Consultant Relationship Specialty Start Date End Date María North MD [address] [place] [address] PCP - General 09/27/17 María North MD [address] [place] [address] [email or web address] Historical LMR Provider 07/11/17 Additional Source Comments The information contained in this document represents components of the legal health record. It is not the complete legal health record.[facility]
--- OUTSIDE RECORDS SUMMARY | 2025-07-09 09:03 | XMS_ITS | Encounter Summary ---
Author Organization [facility] Address [address] [place] [address] [address] [place] [address] Phone Care Team Providers Care Solar Photovoltaic Designer Name Role Phone María North MD Unavailable [phone] María North MD Primary Care Provider [phone] Encounter Details Date Type Department Care Team (Late st Contact Info) Description 06/26/2025 Transcribe Orders [facility] Laboratory [address] [address] Jayson Parry MD [address] [place] [address] [address] [place] [address] Screening for prostate cancer (Primary Dx) Social History Tobacco Use Types Packs/Day Years [...] documented as of this encounter Results * PSA (screening) (06/26/2025 7:46 AM EDT) PSA <0.01 0 - 4.00 ng/mL [facility] Comment: Test Methodology Jose e801 Patient results determined by assays using different manufacturers or methods may not be comparable. Blood 06/26/2025 7:46 AM EDT 06/26/2025 7:52 AM EDT us Jayson Parry MD LAB BLOOD ORDERABLES Final Result [facility] [address] [place] [address] documented in this encounter Visit Diagnoses Diagnosis Screening for prostate cancer- Primary Special screening for malignant neoplasm of prostate documented in this encounter Care Teams Solar Photovoltaic Designer Relationship Specialty Start Date End Date María North MD [address] [place] [address] PCP - General 09/27/17 María North MD [address] [place] [address] Historical LMR Provider 07/11/17 documented as of this encounter Additional Source Comments The information contained in this document represents components of the legal health record. It is not the complete legal health record.[facility]
--- OUTSIDE RECORDS SUMMARY | 2025-07-09 09:03 | XMS_ITS | Encounter Summary ---
Author Organization [facility] Address [address] [place] [address] Phone Care Team Providers Care Center Machine Set Up Operator Name Role Phone Laura Rose MD Unavailable [phone] María North MD Unavailable [phone] Mady Wong MD Unavailable [phone] María North MD Primary Care Provider [phone] Encounter Details Date Type Department Care Team (Latest Contact Info) Description 09/27/2020 Transcribe Orders [facility] Laboratory [address] [address] Bhavesh Ramon MD [address] [place] [phone] Prostate cancer (Primary Dx) Social History Tobacco Use [...] of this encounter Results * PSA (screening) (09/27/2020 10:41 AM EST) PSA <0.05 0 - 4.00 ng/mL [facility] Blood 09/27/2020 10:4 1 AM EST 09/27/2020 10:43 AM EST us Bhavesh Ramon MD LAB BLOOD ORDERABL ES Final Result [facility] [address] [place] [address] documented in this encounter Visit Diagnoses Diagnosis Prostate cancer- Primary Malignant neoplasm of prostate documented in this encounter Additional Health Concerns Infection Onset Date Last Indicated Resolved Time CoV-Risk 10/07/2024 10/07/2024 10/18/2024 1:22 AM EST documented as of this encounter Care Teams Center Machine Set Up Operator Relationship Specialty Start Date End Date María North MD [address] [place] [address] PCP - General 09/27/17 Laura Rose MD [facility] [address] [place] [address] Historical LMR Provider 07/11/17 María North MD [address] [place] [address] Historical LMR Provider 07/11/17 Mady Wong MD [address] [place] [address] Orthopedics & Sports Medicine, [facility] [place] [address] Historical LMR Provider 07/11/17 documented as of this encounter Additional Source Comments The information contained in this document represents components of the legal health record. It is not the complete legal health record.[facility]
--- OUTSIDE RECORDS SUMMARY | 2025-07-09 09:03 | XMS_ITS | Encounter Summary ---
Author Organization [facility] Address [address] [place] [address] Phone Care Team Providers Care Patroller Name Role Phone Laura Rose MD Unavailable [phone] María North MD Unavailable Mady Wong MD Unavailable María North MD Primary Care Provider Encounter Details Date Type Department Care Team (Late st Contact Info) Description 10/28/2019 Transcribe Orders [facility] Laboratory [address] [phone] María North MD [address] [place] [address] [phone] [email or web address] Essential hypertension, malignant (Primary Dx); Elevated cholesterol Social History Tobacco Use Types Packs/Day Years Used Date Smoking Tobacco: Never Assessed Sex and Gender Information Value Date Recorded Sex Assigned at Not on file Legal Sex Male 10:04 PM EDT Gender Identity Not on file Sexual Orientation Not on file documented as of this encounter Plan of Treatment Not on file documented as of this encounter Results * (ABNORMAL) CBC (10/28/2019 7:30 AM EST) WBC 6.48 4.00 - 11.00 K/uL [facility] Comment:Note Reference Range updates to all CBC and Differential results. RBC 4.04 3.90 - 5.69 M/uL [facility] HGB 13.4 12.4 - 17.3 g/dL [facility] Comment:Note updated Referen ce Ranges for all CBC and Differential results. HCT 39.4 37.0 - 51.0 % [facility] PLT 399 140 - 430 K/uL [facility] MCV 97.5(H) 78.0 - 97.0 fL [facility] MCH 33.2(H) 25.0 - 33.0 pg [facility] MCHC 34.0 32.0 - 36.0 g/dL [facility] RDW 12.5 11.0 - 15.0 % [facility] MPV 9.3 8.4 - 12.8 fl [facility] NRBC 0.00 0 /100 WBCs [facility] ABSOLUTE NRBC 0.00 0 K/uL [facility] Blood 10/28/2019 7:30 AM EST 10/28/2019 7:34 AM EST María North MD LAB BLOOD ORDERABLES Final Result Performing Organization Address City/State/[facility] Co de Phone Number [address] [address] * (ABNORMAL) Lipid panel (10/28/2019 7:30 AM EST) HDL 70 mg/dL [facility] Comment: Interpretation <40 mg/dL: Low HDL cholesterol (major risk factor for CHD) Greater than or equal to 60 mg/dL: High HDL cholesterol ( negative risk factor for CHD) HDL - cholesterol is affected by a number of factors, e.g. smoking, excerise, hormones, sex and age. CHOLESTEROL 298(H) 0 - 240 mg/dL [facility] TRIGLYCERIDES 125 30 - 160 mg/dL [facility] LDL 203(H) 50 - 129 mg/dL [facility] Comment: LDL levels in terms of risk for coronary heart disease: <100 mg/dL: Optimal 100-129 mg/dL: Near or above optimal 130-159 mg/dL: Borderline high 160-189 mg/dL: High >190 mg/dL: Very High CARDIAC RISK RATIO 4.3 3.4 - 5.0 C [facility] Blood 10/28/2019 7:30 AM EST 10/28/2019 7:34 AM EST María North MD LAB BLOOD ORDERABLES Final Result [address] [address] * Comprehensive metabolic panel (10/28/2019 7:30 AM EST) SODIUM 142 133 - 146 mmol/L [facility] POTASSIUM 4.3 3.3 - 5.1 mmol/L [facility] CHLORIDE 104 96 - 108 mmol/L [facility] CO2 26 21 - 35 mmol/L [facility] BUN 18 6 - 19 mg/dL [facility] CREATININE 1.10 0.5 - 1.5 mg/dL [facility] GLUCOSE 94 70 - 99 mg/dL [facility] ALBUMIN 4.4 3.9 - 4.8 g/dL [facility] TOTAL PROTEIN 7.3 6.5 - 8.0 g/dL [facility] CALCIUM 9.7 8.4 - 10.3 mg/dL [facility] ALKALINE PHOSPHATASE 76 39 - 117 U/L [facility] TOTAL BILIRUBIN 0.3 0.0 - 1.2 mg/dL [facility] AST 29 0 - 37 U/L [facility] ALT 34 0 - 40 U/L [facility] GLOBULIN 2.9 1 - 4.8 g/dL [facility] EGFR 68 >59 mL/min/1.7 3m2 [facility] Comment:If patient is black, multiply result by 1.159. Estimated glomerular filtration rate calculated using the CKD-EPI equation. ANION GAP 16 10 - 20 mmol/L [facility] Blood 10/28/2019 7:30 AM EST 10/28/2019 7:34 AM EST María North MD LAB BLOOD ORDERABLES Final Result Performing Organization Address [facility]/ZIP Co de Phone Number [address] [address] documented in this encounter Visit Diagnoses Diagnosis Essential hypertension, malignant- Primary Elevated cholesterol Pure hypercholesterolemia documented in this encounter Additional Health Concerns Infection Onset Date Last Indicated Resolved Time CoV-Risk 10/07/2024 10/07/2024 10/18/2024 1:22 AM EST documented as of this encounter Care Teams Patroller Relationship Specialty Start Date End Date María North MD 15 [place] [address] PCP - General 09/27/17 Laura Rose MD 15 [facility], 2nd [place] [address] Historical LMR Provider 07/11/17 María North MD 15 [place] [address] Historical LMR Provider 07/11/17 Mady Wong MD [address] [place] [address] Orthopedics & Sports Medicine, [place] [address] Historical LMR Provider 07/11/17 documented as of this encounter Additional Source Comments The information contained in this document represents components of the legal health record. It is not the complete legal health record.[facility]
--- OUTSIDE RECORDS SUMMARY | 2025-07-09 09:03 | XMS_ITS | Encounter Summary ---
Author Organization [facility] Address [address] [place] [address] Phone Care Team Providers Care Internal Communications Writer Name Role Phone Laura Rose MD Unavailable [phone] María North MD Unavailable Mady Wong MD Unavailable María North MD Primary Care Provider Encounter Details Date Type Department Care Team (Late st Contact Info) Description 12/20/2020 Transcribe Orders [facility] Laboratory [address] [phone] Mraía North MD [address] [place] [address] [phone] [email or web address] Essential hypertension, malignant (Primary Dx); Hyperlipidemia, unspecified hyperlipidemia type; Osteopathy Social History Tobacco Use Types Packs/Day Years Used Date Smoking Tobacco: Never Assessed Sex and Gender Information Value Date Recorded Sex Assigned at Not on file Legal Sex Male 10:04 PM EDT Gender Identity Not on file Sexual Orientation Not on file documented as of this encounter Plan of Treatment Not on file documented as of this encounter Results * (ABNORMAL) CBC (12/20/2020 7:39 AM EDT) WBC 7.34 4.00 - 11.00 K/uL [facility] RBC 4.16 3.90 - 5.69 M/uL [facility] HGB 13.5 12.4 - 17.3 g/dL [facility] HCT 40.6 37.0 - 51.0 % [facility] PLT 382 140 - 430 K/uL [facility] MCV 97.6(H) 78.0 - 97.0 [facility] MCH 32.5 25.0 - 33.0 pg [facility] MCHC 33.3 32.0 - 36.0 g/dL [facility] RDW 12.7 11.0 - 15.0 % [facility] MPV 10.2 8.4 - 12.8 [facility] NRBC 0.00 0 /100 WBCs [facility] ABSOLUTE NRBC 0.00 0 K/uL [facility] Blood 12/20/2020 7:39 AM EDT 12/20/2020 7:45 AM EDT María North MD LAB BLOOD ORDERABLES Final Result Performing Organization Address City/[facility]/ZIP Co de Phone Number [address] [address] * 25-OH vitamin D (12/20/2020 7:39 AM EDT) 25 OH VIT D (TOTAL) 31 30 - 60 ng/mL [facility] Blood 12/20/2020 7:39 AM EDT 12/20/2020 7:45 AM EDT María North MD LAB BLOOD ORDERABLES Final Result Performing Organization Address City/[facility]/ZIP Co de Phone Number [address] [address] * Comprehensive metabolic panel (12/20/2020 7:39 AM EDT) SODIUM 143 133 - 146 mmol/L [facility] POTASSIUM 4.3 3.3 - 5.1 mmol/L [facility] CHLORIDE 106 96 - 108 mmol/L [facility] CO2 26 21 - 35 mmol/L [facility] BUN 17 6 - 19 mg/dL [facility] CREATININE 1.00 0.5 - 1.5 mg/dL [facility] GLUCOSE 98 70 - 99 mg/dL [facility] ALBUMIN 4.2 3.9 - 4.8 g/dL [facility] TOTAL PROTEIN 7.1 6.5 - 8.0 g/dL [facility] CALCIUM 9.5 8.4 - 10.3 mg/dL [facility] ALKALINE PHOSPHATASE 91 39 - 117 U/L [facility] TOTAL BILIRUBIN 0.2 0.0 - 1.2 mg/dL [facility] AST 26 0 - 37 U/L [facility] ALT 22 0 - 40 U/L [facility] GLOBULIN 2.9 1 - 4.8 g/dL [facility] EGFR 75 >59 mL/min/1.7 3m2 [facility] Comment:Estimated glomerular filtration rate calculated using the CKD-EPI equation. ANION GAP 15 10 - 20 mmol/L [facility] Blood 12/20/2020 7:39 AM EDT 12/20/2020 7:45 AM EDT us María North MD LAB BLOOD ORDERABLES Final Result [facility] [address] [place] [address] * (ABNORMAL) Lipid panel (12/20/2020 7:39 AM EDT) HDL 49 mg/dL [facility] Comment: Interpretation <40 mg/dL: Low HDL cholesterol (major risk factor for CHD) Greater than or equal to 60 mg/dL: High HDL cholesterol ( negative risk factor for CHD) HDL - cholesterol is affected by a number of factors, e.g. smoking, excerise, hormones, sex and age. CHOLESTEROL 153 0 - 240 mg/dL [facility] TRIGLYCERIDES 132 30 - 160 mg/dL [facility] LDL 78 50 - 129 mg/dL [facility] Comment: LDL levels in terms of risk for coronary heart disease: <100 mg/dL: Optimal 100-129 mg/dL: Near or above optimal 130-159 mg/dL: Borderline high 160-189 mg/dL: High >190 mg/dL: Very High CARDIAC RISK RATIO 3.1(L) 3.4 - 5.0 C [facility] Blood 12/20/2020 7:39 AM EDT 12/20/2020 7:45 AM EDT María North MD LAB BLOOD ORDERABLES Final Result [facility] [address] [place] [address] documented in this encounter Visit Diagnoses Diagnosis Essential hypertension, malignant- Primary Hyperlipidemia, unspecified hyperlipidemia type Osteopathy Disorder of bone and cartilage, unspecified documented in this encounter Additional Health Concerns Infection Onset Date Last Indicated Resolved Time CoV-Risk 10/07/2024 10/07/2024 10/18/2024 1:22 AM EST documented as of this encounter Care Teams Internal Communications Writer Relationship Specialty Start Date End Date María North MD 15 [place] [address] PCP - General 09/27/17 Laura Rose MD 15 [facility], [address] [place] [address] Historical LMR Provider 07/11/17 María North MD 15 [place] [address] Historical LMR Provider 07/11/17 Mady Wong MD [address] [place] [address] Orthopedics & Sports Medicine, [facility] [place] [address] Historical LMR Provider 07/11/17 documented as of this encounter Additional Source Comments The information contained in this document represents components of the legal health record. It is not the complete legal health record.[facility]
--- OUTSIDE RECORDS SUMMARY | 2025-07-09 09:03 | XMS_ITS | Encounter Summary ---
Author Organization [facility] Address [address] [place] [address] Phone Care Team Providers Care Utility Bill Collector Name Role Phone María North MD Unavailable [phone] María North MD Primary Care Provider [phone] Encounter Details Date Type Department Care Team (Late st Contact Info) Description 01/30/2025 Transcribe Orders [facility] Laboratory 10 [facility] 2nd Floor [place], [place] 1970[address] María North MD 15 [place], [place] [phone] [email or web address] Hypertension, unspecified type (Primary Dx); Hyperlipidemia, unspecified hyperlipidemia type Social History Tobacco Use Types Packs/Day Years [...] of this encounter Results * (ABNORMAL) CBC (01/30/2025 7:43 AM EDT) WBC 8.00 4.00 - 11.00 K/uL [facility] RBC 4.37(L) 4.50 - 5.90 M/uL [facility] HGB 14.5 13.5 - 17.5 g/dL [facility] HCT 43.5 41.0 - 53.0 % [facility] PLT 368 150 - 450 K/uL [facility] MCV 99.5 80.0 - 100.0 fL [facility] MCH 33.2(H) 27.0 - 31.0 pg [facility] MCHC 33.3 32.0 - 36.0 g/dL [facility] RDW 13.0 11.5 - 14.5 % [facility] MPV 9.7 8.4 - 12.0 fL [facility] NRBC 0.00 0.00 /100 WBCs [facility] ABSOLUTE NRBC 0.00 0.00 K/uL [facility] Blood 01/30/2025 7:43 AM EDT 01/30/2025 7:58 AM EDT María North MD LAB BLOOD ORDERABLES Final Result [facility] [address] [place] [address] * (ABNORMAL) Comprehensive metabolic panel (01/30/2025 7:43 AM EDT) SODIUM 140 133 - 146 mmol/L [facility] POTASSIUM 4.0 3.3 - 5.1 mmol/L [facility] CHLORIDE 102 96 - 108 mmol/L [facility] CO2 25 21 - 35 mmol/L [facility] BUN 28(H) 6 - 19 mg/dL [facility] CREATININE 1.50 0.5 - 1.5 mg/dL [facility] GLUCOSE 91 70 - 99 mg/dL [facility] ALBUMIN 4.0 3.9 - 4.8 g/dL [facility] TOTAL PROTEIN 7.0 6.5 - 8.0 g/dL [facility] CALCIUM 9.4 8.4 - 10.3 mg/dL [facility] ALKALINE PHOSPHATASE 78 39 - 117 U/L [facility] TOTAL BILIRUBIN 0.5 0.0 - 1.2 mg/dL [facility] AST 23 0 - 37 U/L [facility] ALT 22 0 - 40 U/L [facility] GLOBULIN 3.0 1 - 4.8 g/dL [facility] EGFR 48(L) >59 mL/min/1.7 3m2 [facility] Comment:Estimated glomerular filtration rate calculated using the CKD-EPI refit equation. ANION GAP 17 10 - 20 mmol/L [facility] Blood 01/30/2025 7:43 AM EDT 01/30/2025 7:58 AM EDT us María North MD LAB BLOOD ORDERABLES Final Result Performing Organization Address City/State/[facility] Co de Phone Number [address] [address] * Lipid panel (01/30/2025 7:43 AM EDT) HDL 53 mg/dL [facility] Comment: Interpretation <40 mg/dL: Low HDL cholesterol (major risk factor for CHD) Greater than or equal to 60 mg/dL: High HDL cholesterol ( negative risk factor for CHD) HDL - cholesterol is affected by a number of factors, e.g. smoking, excerise, hormones, sex and age. CHOLESTEROL 207 0 - 240 mg/dL [facility] TRIGLYCERIDES 136 30 - 160 mg/dL [facility] LDL 127 50 - 129 mg/dL [facility] Comment: LDL levels in terms of risk for coronary heart disease: <100 mg/dL: Optimal 100-129 mg/dL: Near or above optimal 130-159 mg/dL: Borderline high 160-189 mg/dL: High >190 mg/dL: Very High CARDIAC RISK RATIO 3.9 3.4 - 5.0 C [facility] Blood 01/30/2025 7:43 AM EDT 01/30/2025 7:58 AM EDT María North MD LAB BLOOD ORDERABLES Final Result Performing Organization Address City/State/[facility] Co de Phone Number [address] [address] documented in this encounter Visit Diagnoses Diagnosis Hypertension, unspecified type- Primary Hyperlipidemia, unspecified hyperlipidemia type documented in this encounter Care Teams Utility Bill Collector Relationship Specialty Start Date End Date María North MD [address] [place] [address] PCP - General 09/27/17 María North MD [address] [place] [address] Historical LMR Provider 07/11/17 documented as of this encounter Additional Source Comments The information contained in this document represents components of the legal health record. It is not the complete legal health record.[facility]
--- OUTSIDE RECORDS SUMMARY | 2025-07-09 09:03 | XMS_ITS | Encounter Summary ---
Author Organization [facility] Address [address] [place] [address] Phone Care Team Providers Care Family Law Paralegal Name Role Phone Laura Rose MD Unavailable [phone] María North MD Unavailable Mady Wong MD Unavailable [phone] María North MD Primary Care Provider Encounter Details Date Type Department Care Team (Late st Contact Info) Description 06/24/2021 Transcribe Orders Virtual Department [address] [place] [address] María North MD [address] [place] [address] [phone] [email or web address] Neck pain (Primary Dx) Social History Tobacco Use Types Packs/Day Years Used Date Smoking Tobacco: Former Cigarettes Q uit: 12/29/1973 Smokeless Tobacco: Never Sex and Gender Information Value Date Recorded Sex Assigned at Not on file Legal Sex Male 10:04 PM EDT Gender Identity Not on file Sexual Orientation Not on file documented as of this encounter Plan of Treatment Not on file documented as of this encounter Results * XR CERVICAL SPINE 4-5 VIEWS (07/11/2021 1:10 PM EDT) Anatomical Region Laterality Modality C-spine Computed Radiogr aphy 07/11/2021 1:53 PM EDT Impressions 07/11/2021 1:59 PM EDT 1. Multilevel degenerative disc and endplate changes most prominent at C5-C6 and C6-C7. 2. Bilateral neuroforaminal narrowing at multiple levels, moderate at C4-C5 on the right knee 3-C4 on the left. 3. Multilevel facet arthropathy. Narrative 07/11/2021 1:59 PM EDT HISTORY: Right-sided neck pain for 3-4 months. COMPARISON: None. VIEWS: AP, lateral, bilateral foraminal and open-mouth odontoid views. FINDINGS: Moderate disc space narrowing and degenerative endplate changes at C5-C6 and C6- C7. Small posterior osteophytes and small-moderate sized anterior osteophytes at these levels. Mild disc space narrowing and degenerative endplate changes at C4-C5. No subluxations. Evidence of moderate neuroforaminal narrowing at C3-C4 on the left and, to lesser degree on the right. Moderate neuroforaminal narrowing at C4-C5 on the right and minimally on the left. Mild-moderate neuroforaminal narrowing at C5-C6 more so on left than right. Mild neuroforaminal narrowing at C6-C7 on the right. Evidence of multilevel facet arthropathy, fairly prominent at C3-C4 on the left and C4-C5 on the right Procedure Note Max Echeverria MD - 07/11/2021 HISTORY: Right-sided neck pain for 3-4 months. COMPARISON: None. VIEWS: AP, lateral, bilateral foraminal and open-mouth odontoid views. FINDINGS: Moderate disc space narrowing and degenerative endplate changes at C5-C6and C6- C7. Small posterior osteophytes and small-moderate sized anteriorosteophytes at these levels. Mild disc space narrowing and degenerativeendplate changes at C4-C5. No subluxations. Evidence of moderate neuroforaminal narrowing at C3-C4 on the left and, tolesser degree on the right. Moderate neuroforaminal narrowing at C4-C5 onthe right and minimally on the left. Mild-moderate neuroforaminalnarrowing at C5-C6 more so on left than right. Mild neuroforaminalnarrowing at C6-C7 on the right. Evidence of multilevel facet arthropathy, fairly prominent at C3-C4 on theleft and C4-C5 on the right IMPRESSION: 1. Multilevel degenerative disc and endplate changes most prominent atC5-C6 and C6-C7. 2. Bilateral neuroforaminal narrowing at multiple levels, moderate atC4-C5 on the right knee 3-C4 on the left. 3. Multilevel facet arthropathy. María North MD IMG XR SPINE Final Resul t documented in this encounter Visit Diagnoses Diagnosis Neck pain- Primary Cervicalgia Neck pain Cervicalgia documented in this encounter Additional Health Concerns Infection Onset Date Last Indicated Resolved Time CoV-Risk 10/07/2024 10/07/2024 10/18/2024 1:22 AM EST documented as of this encounter Care Teams Family Law Paralegal Relationship Specialty Start Date End Date María North MD 15 [place] [address] PCP - General 09/27/17 Laura Rose MD 15 [facility], 2nd [place] [address] Historical LMR Provider 07/11/17 María North MD 15 [place] [address] Historical LMR Provider 07/11/17 Mady Wong MD [address] [place] [address] Orthopedics & Sports Medicine, [place] [address] Historical LMR Provider 07/11/17 documented as of this encounter Additional Source Comments The information contained in this document represents components of the legal health record. It is not the complete legal health record.[facility]
--- OUTSIDE RECORDS SUMMARY | 2025-07-09 09:03 | XMS_ITS | Encounter Summary ---
Author Organization [facility] Address [address] [place] [address] Phone Care Team Providers Care Parking Analyst Name Role Phone Laura Rose MD Unavailable [phone] María North MD Unavailable [phone] Mady Wong MD Unavailable [phone] María North MD Primary Care Provider [phone] Reason for Referral * MRI/CAT Scan - Closed Specialty Diagnoses / Procedures Referred By Contyuki t Referred To Contact Radiology Diagnoses Prostate cancer Procedures CT Chest María North MD Phone: tel: fax: mailto:[email or web address] Referral ID Status Reason Start Date Expiration Date Visits Re quested Visits Authorized [id number] Closed 10/22/2019 10/21/2020 1 1 Encounter Details Date Type Department Care Team (Late st Contact Info) Description 10/22/2019 Transcribe Orders Virtual Department 30 [place] [address] María North MD [address] [place] [address] [id number] [email or web address] Prostate cancer (Primary Dx) Social History Tobacco [...] as of this encounter Results * CT CHEST WITHOUT CONTRAST (10/31/2019 8:18 AM EST) Anatomical Region Laterality Modality Chest Computed Tomogra phy 10/31/2019 8:27 AM EST Addenda Addendum by Melanie Oscar MD on 11/07/2019 8:18 AM EST Images from the prior CT are now available for comparison. The right flank subcutaneous nodule as is the right lower lobe sub-5 mm pulmonary nodule. Impressions 10/31/2019 8:42 AM EST *Limited without prior imaging for direct comparison.* 1. No suspicious pulmonary nodules. Multiple bilateral benign small calcified granulomas. 2. Indeterminate 1.1 cm right flank subcutaneous mass. Correlate with prior imaging and clinical exam. 3. Additional findings as above. N.B.: Calcification in the coronary arteries does not in itself have a high positive predictive value for near term cardiac events; however, in the appropriate clinical setting it may be an indication for further evaluation or cardiology consultation depending on the patient?s cardiac risk factors. TOTAL CTDIvol: 7.0 mGy POS - [id number] Narrative 10/31/2019 8:42 AM EST COMPARISON: CT abdomen and pelvis report from [facility] which noted a 2 mm right lower lobe base nodule. Images are not available. TECHNIQUE: CT chest without IV contrast. Multiplanar reformatted images generated. Automated exposure control utilized. CT CHEST FINDINGS: Cardiovascular: Heart is normal in size. Trace pericardial fluid. Moderate thoracic aortic calcified plaque and tortuosity. No aneurysm. Main pulmonary artery outflow tract is mildly enlarged which may be due to hypertension. Moderate coronary artery calcified plaque. Mediastinum: Small hiatal hernia. No enlarged mediastinal or hilar lymph nodes. Upper Abdomen: Mild bilateral adrenal gland thickening and nodularity. No masses. Bilateral renal cortical lobulation, congenital variant No acute findings. Chest wall/thoracic inlet: No thyroid nodules. No enlarged supraclavicular or axillary lymph nodes. Musculoskeletal: Osteopenia, mild thoracic kyphosis with diffuse endplate spurring. No compression fractures. No destructive bone lesions. There is a 1.1 x 0.9 cm nodular subcutaneous soft tissue mass in the right flank which is of indeterminate etiology. This may represent a lymph node. This should be correlated with the prior CT abdomen which may have included this finding. Lungs: No airway masses. Mild bilateral diffuse bronchiectasis. Hyperinflation. No pulmonary masses, consolidation or pleural effusions. There are multiple bilateral subcentimeter calcified pulmonary nodules. No suspicious nodules. No evidence of fibrosis. Procedure Note Melanie Oscar MD - 10/31/2019 COMPARISON: CT abdomen and pelvis report from [facility] whichnoted a 2 mm right lower lobe base nodule. Images are not available. TECHNIQUE: CT chest without IV contrast. Multiplanar reformatted imagesgenerated. Automated exposure control utilized. CT CHEST FINDINGS: Cardiovascular: Heart is normal in size. Trace pericardial fluid.Moderate thoracic aortic calcified plaque and tortuosity. No aneurysm.Main pulmonary artery outflow tract is mildly enlarged which may be due tohypertension. Moderate coronary artery calcified plaque. Mediastinum: Small hiatal hernia. No enlarged mediastinal or hilar lymphnodes. Upper Abdomen: Mild bilateral adrenal gland thickening and nodularity. Nomasses. Bilateral renal cortical lobulation, congenital variant No acutefindings. Chest wall/thoracic inlet: No thyroid nodules. No enlargedsupraclavicular or axillary lymph nodes. Musculoskeletal: Osteopenia, mild thoracic kyphosis with diffuse endplatespurring. No compression fractures. No destructive bone lesions. Thereis a 1.1 x 0.9 cm nodular subcutaneous soft tissue mass in the right flankwhich is of indeterminate etiology. This may represent a lymph node.This should be correlated with the prior CT abdomen which may haveincluded this finding. Lungs: No airway masses. Mild bilateral diffuse bronchiectasis.Hyperinflation. No pulmonary masses, consolidation or pleural effusions.There are multiple bilateral subcentimeter calcified pulmonary nodules.No suspicious nodules. No evidence of fibrosis. IMPRESSION: *Limited without prior imaging for direct comparison.* 1. No suspicious pulmonary nodules. Multiple bilateral benign smallcalcified granulomas. 2. Indeterminate 1.1 cm right flank subcutaneous mass. Correlate withprior imaging and clinical exam. 3. Additional findings as above. N.B.: Calcification in the coronary arteries does not in itself have ahigh positive predictive value for near term cardiac events; however, inthe appropriate clinical setting it may be an indication for furtherevaluation or cardiology consultation depending on the patient?s cardiacrisk factors. TOTAL CTDIvol: 7.0 mGy POS - [id number] María North MD IMG CT CHEST Edited Resu lt - Final documented in this encounter Visit Diagnoses Diagnosis Prostate cancer- Primary Malignant neoplasm of prostate Prostate cancer Malignant neoplasm of prostate documented in this encounter Additional Health Concerns Infection Onset Date Last Indicated Resolved Time CoV-Risk 10/07/2024 10/07/2024 10/18/2024 1:22 AM EST documented as of this encounter Care Teams Parking Analyst Relationship Specialty Start Date End Date María North MD [address] [place] [address] [email or web address] PCP - General 09/27/17 Laura Rose MD [address] [place] [address] [email or web address] Historical LMR Provider 07/11/17 María North MD [address] [place] [email or web address] Historical LMR Provider 07/11/17 Mady Wong MD [address] [place] [address] [facility], [place] [address] Historical LMR Provider 07/11/17 documented as of this encounter Additional Source Comments The information contained in this document represents components of the legal health record. It is not the complete legal health record.[facility]
--- OUTSIDE RECORDS SUMMARY | 2025-07-09 09:03 | XMS_ITS | Encounter Summary ---
Author Organization [facility] Address [address] [place] [address] Phone Care Team Providers Care Support Engineer Name Role Phone María North MD Unavailable [phone] María North MD Primary Care Provider [phone] Encounter Details Date Type Department Care Team (Late st Contact Info) Description 02/22/2023 Procedure Pass OR Admitting Dept - Virtual Department 30 [place] [address] Social History Tobacco Use Types Packs/Day Years [...] on file documented as of this encounter Visit Diagnoses Not on filedocumented in this encounter Additional Health Concerns Infection Onset Date Last Indicated Resolved Time CoV-Risk 10/07/2024 10/07/2024 10/18/2024 1:22 AM EST documented as of this encounter Care Teams Support Engineer Relationship Specialty Start Date End Date María North MD [address] [place] [email or web address] PCP - General 09/27/17 María North MD [address] [place] [address] [email or web address] Historical LMR Provider 07/11/17 documented as of this encounter Additional Source Comments The information contained in this document represents components of the legal health record. It is not the complete legal health record.[facility]
--- OUTSIDE RECORDS SUMMARY | 2025-07-09 09:03 | XMS_ITS | Encounter Summary ---
Author Organization [facility] Address [address] [place] [address] [address] [place] [address] Phone Care Team Providers Care Acid Remover Name Role Phone María North MD Unavailable [phone] María North MD Primary Care Provider [phone] Encounter Details Date Type Department Care Team (Late st Contact Info) Description 03/30/2023 Transcribe Orders [facility] [address] [address] Jayson Parry MD [address] [place] [address] [address] [place] [address] Screening for prostate cancer Social History Tobacco Use Types Packs/Day Years [...] of this encounter Results * PSA (screening) (03/30/2023 1:32 PM EDT) PSA <0.01 0 - 4.00 ng/mL [facility] Blood 03/30/2023 1:32 PM EDT 03/30/2023 1:35 PM EDT Jayson Parry MD LAB BLOOD ORDERABLES Final Result [facility] 30 [place] [address] documented in this encounter Visit Diagnoses Diagnosis Screening for prostate cancer Special screening for malignant neoplasm of prostate documented in this encounter Additional Health Concerns Infection Onset Date Last Indicated Resolved Time CoV-Risk 10/07/2024 10/07/2024 10/18/2024 1:22 AM EST documented as of this encounter Care Teams Acid Remover Relationship Specialty Start Date End Date María North MD 15 [place] [address] [email or web address] PCP - General 09/27/17 María North MD 15 [place] [address] Historical LMR Provider 07/11/17 documented as of this encounter Additional Source Comments The information contained in this document represents components of the legal health record. It is not the complete legal health record.[facility]
--- OUTSIDE RECORDS SUMMARY | 2025-07-09 09:03 | XMS_ITS | Encounter Summary ---
Author Organization [facility] Address [address] [place] [address] Phone Care Team Providers Care Brewery Worker Name Role Phone María North MD Unavailable [phone] María North MD Primary Care Provider [phone] Encounter Details Date Type Department Care Team (Late st Contact Info) Description 12/07/2022 Transcribe Orders [facility] Laboratory 10 [facility] 2nd [place] [address] María North MD [address] [place] [address] [email or web address] Social History Tobacco Use Types Packs/Day Years [...] documented as of this encounter Care Teams Brewery Worker Relationship Specialty Start Date End Date María North MD 15 [place] [address] PCP - General 09/27/17 María North MD [address] [place] [address] [email or web address] Historical LMR Provider 07/11/17 documented as of this encounter Additional Source Comments The information contained in this document represents components of the legal health record. It is not the complete legal health record.[facility]
--- OUTSIDE RECORDS SUMMARY | 2025-07-09 09:03 | XMS_ITS | Encounter Summary ---
Author Organization [facility] Address [address] [place] [address] [address] [place] [address] Phone Care Team Providers Care Health Science Instructor Name Role Phone María North MD Unavailable [phone] María North MD Primary Care Provider [phone] Encounter Details Date Type Department Care Team (Late st Contact Info) Description 01/01/2025 Transcribe Orders [facility] Laboratory 10 [facility] 2nd [place] [address] Jayson Parry MD [address] [place] [address] [address] [place] [address] Screening for prostate cancer (Primary Dx) Social [...] of this encounter Results * PSA (screening) (01/01/2025 10:41 AM EDT) PSA <0.01 0 - 4.00 ng/mL [facility] Comment: Test Methodology Jose [id number] Patient results determined by assays using different manufacturers or methods may not be comparable. Blood 01/01/2025 10:4 1 AM EDT 01/01/2025 10:43 AM EDT us Jayson Parry MD LAB BLOOD ORDERABLES Final Result [facility] [address] [place] [address] documented in this encounter Visit Diagnoses Diagnosis Screening for prostate cancer- Primary Special screening for malignant neoplasm of prostate documented in this encounter Care Teams Health Science Instructor Relationship Specialty Start Date End Date María North MD 15 [place] [address] PCP - General 09/27/17 María North MD [address] [place] [address] Historical LMR Provider 07/11/17 documented as of this encounter Additional Source Comments The information contained in this document represents components of the legal health record. It is not the complete legal health record.[facility]
--- OUTSIDE RECORDS SUMMARY | 2025-07-09 09:03 | XMS_ITS | Encounter Summary ---
Author Organization [facility] Address [address] [place] [address] Phone Care Team Providers Care Administrative Services Manager Name Role Phone María Notrh MD Unavailable [phone] María North MD Primary Care Provider [phone] Encounter Details Date Type Department Care Team (Late st Contact Info) Description 02/24/2025 Transcribe Orders [facility] Laboratory 10 [facility] 2nd Floor [place], [place] [id number] María North MD 15 [place], [place] [id number] [email or web address] Decreased glomerular filtration rate (GFR) (Primary Dx) Social History Tobacco Use Types [...] as of this encounter Results * (ABNORMAL) Basic metabolic panel (02/24/2025 7:53 AM EDT) SODIUM 141 133 - 146 mmol/L [facility] CHLORIDE 105 96 - 108 mmol/L [facility] POTASSIUM 4.1 3.3 - 5.1 mmol/L [facility] Comment:Specimen slightly he molyzed, result may be falsely elevated. CO2 24 21 - 35 mmol/L [facility] BUN 20(H) 6 - 19 mg/dL [facility] CREATININE 1.30 0.5 - 1.5 mg/dL [facility] GLUCOSE 88 70 - 99 mg/dL [facility] CALCIUM 9.0 8.4 - 10.3 mg/dL [facility] EGFR 57(L) >59 mL/min/1.7 3m2 [facility] Comment:Estimated glomerular filtration rate calculated using the CKD-EPI refit equation. ANION GAP 16 10 - 20 mmol/L [facility] Blood 02/24/2025 7:53 AM EDT 02/24/2025 7:57 AM EDT us María North MD LAB BLOOD ORDERABLES Final Result [facility] [address] [place] [address] documented in this encounter Visit Diagnoses Diagnosis Decreased glomerular filtration rate (GFR)- Primary documented in this encounter Care Teams Administrative Services Manager Relationship Specialty Start Date End Date María North MD [address] [place] [address] [email or web address] PCP - General 09/27/17 María North MD [address] [place] [address] [email or web address] Historical LMR Provider 07/11/17 documented as of this encounter Additional Source Comments The information contained in this document represents components of the legal health record. It is not the complete legal health record.[facility]
--- OUTSIDE RECORDS SUMMARY | 2025-07-09 09:03 | XMS_ITS | Encounter Summary ---
Author Organization [facility] Address [address] [place] [address] Phone Care Team Providers Care Tipple Mechanic Name Role Phone Laura Rose MD Unavailable [phone] María North MD Unavailable Mady Wong MD Unavailable [phone] María North MD Primary Care Provider Encounter Details Date Type Department Care Team (Late st Contact Info) Description 10/15/2020 Transcribe Orders Virtual Department 30 [place] [address] María North MD [address] [place] [email or web address] Pain in both knees, unspecified chronicity (Primary Dx) Social History Tobacco Use Types Packs/Day Years Used Date Smoking Tobacco: Never Assessed Sex and Gender Information Value Date Recorded Sex Assigned at Not on file Legal Sex Male 10:04 PM EDT Gender Identity Not on file Sexual Orientation Not on file documented as of this encounter Plan of Treatment Not on file documented as of this encounter Results * XR KNEE 4 OR MORE VIEWS (BILATERAL) (10/19/2020 9:58 AM EST) Anatomical Region Laterality Modality Knee Bilateral, Knee Right, Knee Left Computed Radiography 10/19/2020 10:0 0 AM EST Impressions 10/19/2020 10:04 AM EST Mild right medial joint space narrowing and minor bilateral patellofemoral osteoarthritis. POS [id number] Narrative 10/19/2020 10:04 AM EST Bilateral knees, 5 views total. No comparison. AP standing view shows mild narrowing of the medial joint space on the right. The other joint spaces are well preserved. No effusion. Minimal marginal spurring in the patellofemoral compartments bilaterally, minimally the lateral margins. No other significant osteophyte formation or other arthritic changes on either side. No gross joint effusion. No signs of trauma, tumor or infection. Procedure Note Navarro Pollock MD - 10/19/2020 Bilateral knees, 5 views total. No comparison. AP standing view shows mild narrowing of the medial joint space on theright. The other joint spaces are well preserved. No effusion. Minimal marginal spurring in the patellofemoral compartments bilaterally,minimally the lateral margins. No other significant osteophyte formationor other arthritic changes on either side. No gross joint effusion. No signs of trauma, tumor or infection. IMPRESSION: Mild right medial joint space narrowing and minor bilateral patellofemoralosteoarthritis. POS [id number] María North MD IMG XR LOWER EXTREMITY Kaycee l Result documented in this encounter Visit Diagnoses Diagnosis Pain in both knees, unspecified chronicity- Primary Pain in both knees, unspecified chronicity documented in this encounter Additional Health Concerns Infection Onset Date Last Indicated Resolved Time CoV-Risk 10/07/2024 10/07/2024 10/18/2024 1:22 AM EST documented as of this encounter Care Teams Tipple Mechanic Relationship Specialty Start Date End Date María North MD [address] [place] [address] [email or web address] PCP - General 09/27/17 Laura Rose MD [address] [place] [address] Historical LMR Provider 07/11/17 María North MD [address] [place] [address] Historical LMR Provider 07/11/17 Mady Wong MD [address] [place] [address] [facility], [place] [address] [email or web address] Historical LMR Provider 07/11/17 documented as of this encounter Additional Source Comments The information contained in this document represents components of the legal health record. It is not the complete legal health record.[facility]
--- OUTSIDE RECORDS SUMMARY | 2025-07-09 09:03 | XMS_ITS | Encounter Summary ---
Author Organization [facility] Address [address] [place] [address] Phone Care Team Providers Care Diesel Locomotive Engineer Name Role Phone Laura Rose MD Unavailable [phone] María North MD Unavailable [phone] Mady Wong MD Unavailable [phone] María North MD Primary Care Provider [phone] Encounter Details Date Type Department Care Team (Latest Contact Info) Description 03/08/2021 Transcribe Orders [facility] Laboratory [address] [address] Bhavesh Ramon MD [address] [place] [address] Prostate cancer (Primary Dx) Social History Tobacco [...] of this encounter Results * PSA (screening) (03/08/2021 9:57 AM EDT) PSA <0.05 0 - 4.00 ng/mL [facility] Blood 03/08/2021 9:57 AM EDT 03/08/2021 10:00 AM EDT us Bhavesh Ramon MD LAB BLOOD ORDERABL ES Final Result [facility] 30 [place] [address] documented in this encounter Visit Diagnoses Diagnosis Prostate cancer- Primary Malignant neoplasm of prostate documented in this encounter Additional Health Concerns Infection Onset Date Last Indicated Resolved Time CoV-Risk 10/07/2024 10/07/2024 10/18/2024 1:22 AM EST documented as of this encounter Care Teams Diesel Locomotive Engineer Relationship Specialty Start Date End Date María North MD 15 [place] [address] PCP - General 09/27/17 Laura Rose MD [address] [address] Historical LMR Provider 07/11/17 María North MD 15 [place] [address] Historical LMR Provider 07/11/17 Mady Wong MD [address] [place] [address] [facility] [place] [address] Historical LMR Provider 07/11/17 documented as of this encounter Additional Source Comments The information contained in this document represents components of the legal health record. It is not the complete legal health record.[facility]
--- OUTSIDE RECORDS SUMMARY | 2025-07-09 09:03 | XMS_ITS | Encounter Summary ---
Author Organization [facility] Address [address] [place] [address] Phone Care Team Providers Care Manager House Name Role Phone María North MD Unavailable [phone] María North MD Primary Care Provider [phone] Encounter Details Date Type Department Care Team (Late st Contact Info) Description 07/05/2023 Transcribe Orders [facility] Laboratory 10 [facility] 2nd Floor [place], [place] [phone] María North MD 15 [place], [place] [phone] [email or web address] Hypertension, unspecified type (Primary Dx); Low kidney function Social History Tobacco Use Types Packs/Day Years [...] encounter Results * (ABNORMAL) Basic metabolic panel (07/05/2023 7:45 AM EDT) SODIUM 139 133 - 146 mmol/L [facility] CHLORIDE 105 96 - 108 mmol/L [facility] POTASSIUM 4.3 3.3 - 5.1 mmol/L [facility] CO2 23 21 - 35 mmol/L [facility] BUN 14 6 - 19 mg/dL [facility] CREATININE 1.40 0.5 - 1.5 mg/dL [facility] GLUCOSE 89 70 - 99 mg/dL [facility] CALCIUM 8.6 8.4 - 10.3 mg/dL [facility] EGFR 53(L) >59 mL/min/1.7 3m2 [facility] Comment:Estimated glomerular filtration rate calculated using the CKD-EPI refit equation. ANION GAP 15 10 - 20 mmol/L [facility] Blood 07/05/2023 7:45 AM EDT 07/05/2023 7:51 AM EDT us María North MD LAB BLOOD ORDERABLES Final Result [facility] [address] [place] [address] documented in this encounter Visit Diagnoses Diagnosis Hypertension, unspecified type- Primary Low kidney function Nonspecific abnormal results of kidney function study documented in this encounter Additional Health Concerns Infection Onset Date Last Indicated Resolved Time CoV-Risk 10/07/2024 10/07/2024 10/18/2024 1:22 AM EST documented as of this encounter Care Teams Manager House Relationship Specialty Start Date End Date María North MD [address] [place] [address] [email or web address] PCP - General 09/27/17 María North MD [address] [place] [address] [email or web address] Historical LMR Provider 07/11/17 documented as of this encounter Additional Source Comments The information contained in this document represents components of the legal health record. It is not the complete legal health record.[facility]
== END 2025-07-09 08:53 | disposition home or self-care (01) ==
LOC: HO.HUSH 08:35
PROVIDERS: PCP Internal Medicine; Visit Provider Urology
DX: C61 Malignant neoplasm of prostate (principal); R39.15 Urgency of urination
CPT/HCPCS: 99213; G2211

== ENCOUNTER → 2025-07-09 08:34 | Outpatient (BNVA) | payer MEDICARE, OTHER, SELFPAY | PROVIDERS: PCP Internal Medicine; Visit Provider Urology | DX: C61 Malignant neoplasm of prostate (principal); R39.15 Urgency of urination | CPT/HCPCS: 99212 ==